=== PATIENT | male | born 1960 | race Two or more races ===

== ENCOUNTER 2020-09-13 15:31 | Outpatient (REF) | payer OTHER, SELFPAY | END 2020-09-13 15:32 | disposition home or self-care (01) | LOC: HO.LAB 15:31 | PROVIDERS: Visit Provider Internal Medicine | DX: Z20.828 Contact with and (suspected) exposure to other viral communicable diseases (principal) | CPT/HCPCS: C9803; U0003 ==

== ENCOUNTER 2021-10-20 07:13 | Outpatient (REF) | payer OTHER, SELFPAY ==
[2021-10-20 07:35] LABS: MANUAL DIFF FLAG NO
[2021-10-20 07:45] LABS: Ammonia 26 umol/L (13-55)
[2021-10-20 07:54] LABS: Alanine Aminotransferase 16 U/L (0-40); Albumin Level 4.1 g/dL (3.5-5.0); Alkaline Phosphatase 78 U/L (39-117); Anion Gap 11 (12-20); Aspartate Amino Transferase 25 U/L (5-37); Bilirubin Total 0.8 mg/dL (0.0-1.0); Blood Urea Nitrogen 18 mg/dL (9-16); C Reactive Protein 0.72 mg/dL (< or = 0.50); Calcium 9.6 mg/dL (8.4-10.2); Carbon Dioxide 27 mmol/L (22-29); Chloride 106 mmol/L (96-108); Cholesterol 204 mg/dL; Estimated Glomerular Filt Rate > 60; Glucose Fasting 99 mg/dL (60-99); HDL Cholesterol 44 mg/dL; LDL Cholesterol Calculated 145 mg/dl; Potassium 4.8 mmol/L (3.3-5.1); Sodium 139 mmol/L (135-145); Total Protein 7.5 g/dL (6.5-8.0); Triglycerides 77 mg/dL
[2021-10-20 08:02] LABS: Basophils Percent Auto 0.4 % (0-2); Eosinophils Absolute Auto 0.2 X10*3/uL (0.0-0.4); Eosinophils Percent Auto 3.2 % (0-4); Hematocrit 42.8 % (42.0-52.0); Hemoglobin 14.2 g/dl (14.0-18.0); Imm Gran Abs Auto 0.01 X10*3/uL (0.00-0.03); Imm Gran Pct Auto 0.2 % (0.0-0.4); Lymphocytes Absolute Auto 1.1 X10*3/uL (1.2-4.9); Lymphocytes Percent Auto 19.1 % (20-40); Mean Corpuscular HGB Conc 33.2 g/dl (31.0-36.0); Mean Corpuscular Volume 87.5 fL (80.0-98.0); Mean Platelet Volume 9.7 fL (9.4-12.4); Monocytes Absolute Auto 0.6 X10*3/uL (0.1-1.2); Monocytes Percent Auto 10.1 % (2-11); Neutrophils Absolute Auto 3.7 x10*3/uL (2.0-8.3); Platelet Count 125 X10*3/uL (160-400); Red Blood Count 4.89 X10*6/uL (4.60-5.80); Red Cell Distribution Width 14.4 % (11.0-16.0); White Blood Count 5.6 X10*3/uL (4.8-10.8)
[2021-10-20 08:15] LABS: Prostate Specific Antigen Scr 1.04 ng/mL (<0.05-4.0); TSH reflex Free T4 1.12 uIU/mL (0.32-4.0); Vitamin D 25-OH Total 24.8 ng/mL (>30)
[2021-10-20 08:44] LABS: Erythrocyte Sedimentation Rate 21 MM/HR (0-15)
[2021-10-22 13:21] LABS: Anti Nuclear Antibody Screen NEGATIVE (NEGATIVE)
[2021-10-23 15:35] LABS: Anti DNA DS Antibody <1 IU/mL
== END 2021-10-20 07:14 | disposition home or self-care (01) ==
LOC: HO.LAB 07:13
PROVIDERS: PCP Internal Medicine; Visit Provider Internal Medicine
DX: Z00.00 Encounter for general adult medical examination without abnormal findings (principal); Z12.5 Encounter for screening for malignant neoplasm of prostate; E78.00 Pure hypercholesterolemia, unspecified; M25.50 Pain in unspecified joint; R76.8 Other specified abnormal immunological findings in serum; E55.9 Vitamin D deficiency, unspecified; K74.60 Unspecified cirrhosis of liver
CPT/HCPCS: 36415; 80053; 80061; 82140; 82306; 84153; 84443; 85025; 85652; 86038; 86039; 86140; 86225; 86431

== ENCOUNTER 2021-11-10 09:03 | Outpatient (REF) | payer OTHER, SELFPAY ==
--- NOTE | ~2021-11-10 | US_ITS ---
EXAMINATION: US ABDOMEN COMPLETE CLINICAL INFORMATION: Unspecified cirrhosis of liver. COMPARISON: CT abdomen and pelvis without contrast 11/06/2017. Abdominal ultrasound complete 07/22/2014. TECHNIQUE: Real-time imaging of the abdominal viscera. FINDINGS: PANCREAS: Normal. ABDOMINAL AORTA: The proximal, mid, and distal segments are normal in caliber. INFERIOR VENA CAVA: Visualized portions are normal. LIVER: Liver echotexture is increased and heterogeneous suggestive of hepatocellular disease. The contour of the liver is irregular suggestive of cirrhosis. There is marked hypertrophy of the caudate lobe. There is a 1.3 x 1.4 x 1.3 cm hyperechoic lesion in the left lobe of the liver worrisome for neoplasm. No other focal liver lesion is seen. GALLBLADDER: The gallbladder is physiologically distended. Multiple mobile gallstones are present. The gallbladder wall appears slightly thickened measuring 4 mm. There is gallbladder wall edema. Changes may be related to liver disease. COMMON BILE DUCT: Normal in caliber measuring 0.4 cm in diameter. RIGHT KIDNEY: Normal. No hydronephrosis. No renal calculi or focal parenchymal lesions. The kidney measures 9.7 cm in maximum dimension. LEFT KIDNEY: Normal. No hydronephrosis. No renal calculi or focal parenchymal lesions. The kidney measures 10.5 cm in maximum dimension. SPLEEN: Normal. The spleen measures 11.7 cm in maximum dimension. FREE FLUID: None. US/US abdomen complete IMPRESSION: Cirrhotic-appearing liver. 1.3 x 1.4 x 1.3 cm hyperechoic lesion in the left lobe of the liver. Possible neoplastic process should be considered and follow-up liver MRI with contrast recommended. Gallstones. Slightly thickened edematous gallbladder wall. This may be related to the patient's liver disease. 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
== END 2021-11-10 09:04 | disposition home or self-care (01) ==
LOC: HO.US 09:03
PROVIDERS: Visit Provider Internal Medicine
DX: K74.60 Unspecified cirrhosis of liver (principal)
CPT/HCPCS: 76700

== ENCOUNTER 2021-11-26 09:31 | Outpatient (REF) | payer OTHER, SELFPAY ==
--- NOTE | ~2021-11-26 | XR_ITS ---
EXAMINATION: PRE-MRI ORBITS AND PELVIS CLINICAL INFORMATION: Pre-MRI screening COMPARISON: None TECHNIQUE: Orbits 3 views. Pelvis one view. FINDINGS: ORBITS: There is no radiopaque foreign body seen in the orbits. Visualized bony orbits and sinus dean are intact. The paranasal sinuses and mastoid air cells are well-aerated and clear. PELVIS: There is no radiopaque metallic foreign body seen in the pelvis or the proximal thighs. XR/XR pre mri screening IMPRESSION: No radiopaque metallic foreign body seen in the orbits. No radiopaque metallic foreign body seen in the pelvis or the proximal thighs.
--- NOTE | ~2021-11-26 | MR_ITS ---
EXAMINATION: MR ABDOMEN WITHOUT AND WITH CONTRAST CLINICAL INFORMATION: Liver disease. COMPARISON: Abdominal ultrasound 11/10/2021 CT abdomen/pelvis 11/06/2017 TECHNIQUE: MR abdomen was performed without and with use of 7 mL intravenous Gadavist gadolinium contrast. Postcontrast images are performed in multiphase dynamic sequences. Imaging was performed in 3 planes. FINDINGS: LUNG BASES: No pleural or pericardial effusion. LIVER, GALLBLADDER, AND BILIARY TREE: Nodular surface contour of the liver. 1.2 cm circumscribed T2 hyperintense T1 hypointense focus in the left hepatic lobe demonstrates progressive peripheral nodular enhancement. 1.3 cm focus of arterial phase enhancement at the hepatic dome on image 25 of series 100. No corresponding signal abnormality on T2 weighted images. No definite evidence of washout characteristics. T2 hyperintense peripheral reticular changes with capsular retraction and portal venous phase enhancement most likely represents fibrosis. No biliary ductal dilatation. The gallbladder contains numerous gallstones. PANCREAS: No ductal dilatation SPLEEN: Borderline enlarged. Measures 13.1 cm in AP dimension. ADRENAL GLANDS: No adrenal masses. KIDNEYS AND URETERS: Symmetric in size and enhancement. No hydronephrosis or perinephric stranding. GASTROINTESTINAL TRACT: Imaged loops of small and large bowel are not obstructed. ABDOMINAL WALL: No significant hernia is appreciated. LYMPH NODES: No abdominal lymphadenopathy. VASCULAR: Normal caliber abdominal aorta. MR/MR abdomen wo/w con IMPRESSION: Morphology consistent with cirrhosis. Mild splenic enlargement. 1.3 cm observation at the hepatic dome demonstrating arterial phase enhancement. This is classified as a LR-3 lesion with an intermediate probability for HCC. Short interval follow-up in 3 months is advised. 1.2 cm lesion in the left hepatic lobe with progressive peripheral nodular enhancement. This may represent a hemangioma. Cholelithiasis.
== END 2021-11-26 09:32 | disposition home or self-care (01) ==
LOC: HO.MRI 09:31
PROVIDERS: Visit Provider Internal Medicine
DX: K70.31 Alcoholic cirrhosis of liver with ascites (principal); K76.9 Liver disease, unspecified; T15.80XA Foreign body in other and multiple parts of external eye, unspecified eye, initial encounter; X58.XXXA Exposure to other specified factors, initial encounter; Y93.9 Activity, unspecified; Y92.9 Unspecified place or not applicable; Y99.9 Unspecified external cause status
CPT/HCPCS: 74183; A9585

== ENCOUNTER 2024-01-04 08:01 | Outpatient (REF) | payer OTHER, SELFPAY ==
[2024-01-04 08:23] LABS: MANUAL DIFF FLAG NO
[2024-01-04 08:33] LABS: Ammonia 25 umol/L (13-55)
[2024-01-04 08:58] LABS: Appearance Urine Clear; Color Urine Yellow; Glucose Urine UA Negative (Negative); Leukocyte Esterase Urine Trace (Negative); Nitrite Urine Negative (Negative); PH 5.5 (5.0-9.0); Specific Gravity - Urine 1.015 (1.005-1.025); UMIC TRIGGER UACC YES; Urine Blood Negative (Negative); Urine Ketones Negative (Negative); Urine Protein Negative (Neg-Trace)
[2024-01-04 09:04] LABS: Bacteria Urine Trace (None Seen); Hyaline Casts Urine 0-2 /LPF (0-2); RBC Urine 0-2 /HPF (0-2); UACC Culture Trigger YES
[2024-01-04 09:09] LABS: Basophils Percent Auto 0.4 % (0-2); Eosinophils Absolute Auto 0.3 X10*3/uL (0.0-0.4); Eosinophils Percent Auto 5.9 % (0-4); Hematocrit 43.6 % (42.0-52.0); Hemoglobin 14.4 g/dl (14.0-18.0); Imm Gran Abs Auto 0.02 X10*3/uL (0.00-0.03); Imm Gran Pct Auto 0.4 % (0.0-0.4); Lymphocytes Percent Auto 19.6 % (20-40); Mean Corpuscular Hemoglobin 28.1 pg (27.0-33.0); Mean Platelet Volume 9.7 fL (9.4-12.4); Monocytes Absolute Auto 0.5 X10*3/uL (0.1-1.2); Monocytes Percent Auto 10.9 % (2-11); Neutrophils Absolute Auto 3.1 x10*3/uL (2.0-8.3); Neutrophils Percent Auto 62.8 % (45-73); Platelet Count 132 X10*3/uL (160-400); Red Blood Count 5.13 X10*6/uL (4.60-5.80); Red Cell Distribution Width 14.3 % (11.0-16.0)
[2024-01-04 09:52] LABS: Alanine Aminotransferase 13 U/L (0-40); Albumin Level 3.9 g/dL (3.5-5.0); Alkaline Phosphatase 67 U/L (39-117); Anion Gap 11 (12-20); Aspartate Amino Transferase 19 U/L (5-37); Bilirubin Total 1.2 mg/dL (0.0-1.0); Blood Urea Nitrogen 18 mg/dL (9-16); Calcium 9.2 mg/dL (8.4-10.2); Carbon Dioxide 25 mmol/L (22-29); Chloride 107 mmol/L (96-108); Cholesterol 174 mg/dL (<200); Estimated Glomerular Filt Rate > 60; Glucose Fasting 97 mg/dL (60-99); HDL Cholesterol 47 mg/dL (>40); LDL Cholesterol Calculated 116 mg/dL (<100); Potassium 4.1 mmol/L (3.3-5.1); Sodium 139 mmol/L (135-145); Total Protein 7.4 g/dL (6.5-8.0); Triglycerides 56 mg/dL (<150)
[2024-01-04 09:56] LABS: TSH reflex Free T4 1.05 uIU/mL (0.32-4.0); Vitamin D 25-OH Total 21.3 ng/mL (>30)
[2024-01-04 12:08] LABS: Folate 12.3 ng/mL (> or = 4.0); Vitamin B12 417 pg/mL (200-900)
== END 2024-01-04 08:02 | disposition home or self-care (01) ==
LOC: HO.LAB 08:01
PROVIDERS: PCP Internal Medicine; Visit Provider Internal Medicine
DX: D64.9 Anemia, unspecified (principal); E78.00 Pure hypercholesterolemia, unspecified; E53.8 Deficiency of other specified B group vitamins; E55.9 Vitamin D deficiency, unspecified; R30.0 Dysuria
CPT/HCPCS: 36415; 80053; 80061; 81001; 82140; 82306; 82607; 82746; 84443; 85025; 87086

== ENCOUNTER 2024-01-14 12:50 | Outpatient (AMB) | payer OTHER, SELFPAY ==
--- NOTE | 2024-01-14 12:52 | MHC.PC.OV ---
Vital Signs 01/14/24 12:53 Height 5 ft 5 in Weight 129 lb BMI 21.5 BP 128/76 Blood Pressure Location Lt brachial Position Sitting Pulse 59 Pulse Source Pulse Oximeter Pulse Oximetry (%) 99 Oxygen Delivery Method Room Air Intake Visit Reasons: Overdue Annual PE/Last seen 2021 Folder Inspector Required: No Allergies atorvastatin [From LIPITOR] Allergy (Unknown, Verified 01/14/24 13:59) UNKNOWN ANY STATIN MEDICATIONS Allergy (Unknown, Uncoded 01/14/24 13:59) hives Lipitor Allergy (Unknown, Uncoded 01/14/24 13:59) Hives Medication List - Last Reconciled 01/14/24 by Colt Cadena MD cholecalciferol (vitamin D3) 50 mcg PO DAILY 90 days Tobacco use date assessed: 01/14/24 Fall risk assessment: No Falls in past year Last assessed Fall Risk: 01/14/24 Dental Screening Dental Screen Date: 01/14/24 Did you have a dental visit in the last 12 months?: No Did you have a dental problem in the last 6 months where you did not have access to dental care?: No HPI Overdue Annual PE/Last seen 2021 HPI Details Patient comes in today for his annual physical examination - was last seen here in February 2022 States that he currently feels okay He denies any headaches or dizziness Denies any chest pains, no SOB No nausea/vomiting, no abdominal pain No change in bowel habits noted He denies any acute urinary symptoms Is currently only taking some OTC vitamins and supplements and is on no prescription Rx at this time Had his follow up labs done last week - to discuss his results He last had his screening colonoscopy done by Dr. Carter in 2019 and was advised at the time that he will need a repeat colonoscopy in 3 years (2021) - has not had one done since [facility] Medical History Vitamin D deficiency Smoker Portal hypertension Pure hypercholesterolemia Liver cirrhosis Surgical History History of colonoscopy History of penile implant Social History Housing: House Alcohol intake: former Patient Tobacco Use Status: Current everyday Tobacco user Cigarette Packs Per Day: 1 Second Hand Smoke Exposure: Yes service: No Current occupational status: employed Cognitive needs: No Hearing needs: No Vision needs: Yes Questionnaire PHQ-9 Over the last 2 weeks, how often have you been bothered by any of the following problems? 1. Little interest or pleasure in doing things: not at all 2. Feeling down, depressed, or hopeless: not at all 3. Trouble falling or staying asleep, or sleeping too much: not at all 4. Feeling tired or having little energy: not at all 5. Poor appetite or overeating: not at all 6. Feeling bad about yourself - or that you are a failure or have let yourself or your family down: not at all 7. Trouble concentrating on things, such as reading the newspaper or watching television: not at all 8. Moving or speaking so slowly that other people could have noticed. Or the opposite - being so fidgety or restless that you have been moving around a lot more than usual: not at all 9. Thoughts that you would be better off or of hurting yourself in some way: not at all Total score: 0 Depression Screening Interpretation: Negative Depression Screening Done: Yes 80675 - PHQ-9 Billing: Yes Source: Developed by Drs. Chang Cano, Mily Juares, Thien Montgomery and colleagues, with an educational pam from [employer]. Thrive Questionnaire Date Thrive assessed: 01/14/24 I am a: Patient What is your living situation today?: I have a steady place to live Within the past 12 months, did the food you bought not last and you didn't have the money to get more?: Never true Within the past 12 months, did you worry whether your food would run out before you got money to buy more?: Never true Do you have trouble paying for medicines?: No Do you have trouble getting transportation to medical appointments?: No Do you have trouble paying your heating and electricity bill?: No Do you have trouble taking care of your child, family member or friend?: No Do you have trouble with day-to-day activities such as bathing, preparing meals, shopping, managing finances, etc.?: No Are you currently unemployed and looking for a job?: No Are you interested in more education?: No Please select the resources that you would like help with: None Currently or been in a relationship where the following occur: no concerns reported THRIVE Score: 0 AUDIT C Alcohol Use Questionnaire (AUDIT-C) 1. How often do you have a drink containing alcohol?: Never 2. How many drinks containing alcohol do you have on a typical day when you are drinking?: 1 or 2 (0) 3. How often do you have six or more drinks on one occasion?: Never Total Score: 0 Score Reviewed/Action Taken: Yes SUSANNA-7 AMB Questionnaire SUSANNA-7 Date SUSNANA - 7 assessed: 01/14/24 Feeling nervous, anxious, or on edge: 0 = Not at all Not being able to stop or control worryin = Not at all Worrying too much about different things: 0 = Not at all Trouble relaxin = Not at all Being so restless that it is hard to sit still: 0 = Not at all Becoming easily annoyed or irritable: 0 = Not at all Feeling afraid as if something awful might happen: 0 = Not at all Total SUSANNA-7 score (0-4 normal; 5-9 mild; 10-14 moderate; 15-21 severe): 0 Source: Developed by Drs. Chang Cano, Mily Juares, Thien Montgomery and colleagues, with an educational pam from [employer]. SUSANNA-7 Assessment Billing SUSANNA-7 Assessment Tool: SUSANNA-7 Assessment 25398 Review of Systems Const Denies chills, Denies fatigue, Denies fever(s), Denies headache(s), Denies malaise and Denies weakness Eyes Denies blurry vision, Denies change in vision, Denies irritation and Denies itchy eyes ENT Denies dysphagia, Denies dizziness, Denies otalgia, Denies headache(s), Denies nasal congestion, Denies neck pain, Denies odynophagia and Denies sore throat Card Denies chest pain, Denies rapid heart rate, Denies irregular heart rhythm, Denies palpitations and Denies dyspnea Resp Denies chest congestion, Denies cough, Denies dyspnea and Denies wheezing GI Denies abdominal pain, Denies bloating, Denies constipation, Denies dysphagia, Denies heartburn, Denies diarrhea, Denies nausea, Denies odynophagia and Denies vomiting Denies hematuria, Denies difficulty urinating, Denies dysuria, Denies urinary frequency and Denies urinary urgency Musc Denies back pain, Reports arthralgias (involving multiple joints, especially over the hands/fingers), Denies joint swelling, Denies muscle weakness, Denies neck pain and Reports stiffness Skin/Breast Denies change in pigmentation, Denies lesions, Denies rash and Denies unusual bruising Neuro Denies dizziness, Denies headache(s), Denies paresthesias and Denies weakness Endo Denies fatigue and Denies palpitations Aller/Immun Denies itchy eyes and Denies wheezing Physical exam (Primary Care) Vital Signs: Last Vital Signs Pulse 59 01/14/24 12:53 BP 128/76 01/14/24 12:53 Pulse Ox 99 01/14/24 12:53 Oxygen Delivery Method Room Air 01/14/24 12:53 BMI result Body Mass Index 21.5 Tobacco/Smoking Status: Tobacco use Status Tobacco use date assessed 01/14/24 01/14/24 12:53 Patient Tobacco Use Status Current everyday Tobacco 01/14/24 12:53 PHQ-9: PHQ-9 Score PHQ-9: Total score 0 01/14/24 12:58 Depression Screening Interpretation: Negative Thrive Assessment: Date of Thrive Assessment Date Thrive assessed 01/14/24 01/14/24 12:53 Currently or been in a relationship where the following occur: no concerns reported Const General: no acute distress, alert and awake Orientation/consciousness: patient oriented x3 HENMT Head: Yes normocephalic and Yes atraumatic Ears: external ears normal, TM's normal bilaterally and EAC's normal General nose exam: No nasal discharge present Face and sinus: Yes normal facial exam and Yes sinuses nontender Teeth and gingiva: dentition normal Throat: Yes posterior oropharynx normal and Yes tonsils normal (no TP congestion) Eyes Eyelids: Yes eyelids normal Conjunctivae: conjunctivae normal Pupils: Equal, round and reactive pupils present EOM: EOMs intact bilaterally Neck Neck: Yes no lymphadenopathy and Yes supple Thyroid: Thyroid normal Resp Auscultation: clear to auscultation bilaterally, no rales and no wheezes Cardio Rate: regular rate Rhythm: regular rhythm Heart sounds: no murmurs GI Palpation (GI): Soft to palpation, nontender and No hepatosplenomegaly present Auscultation: normal bowel sounds General: Yes no CVA tenderness Back/Spine/Pelvis Back: no CVA tenderness Thoracic/Lumbar Spine: thoracic and lumbar spine normal to inspection Skin Lesions: no lesions Rashes: no rashes Neuro General: patient oriented x3, moves all extremities, no focal motor deficits and CN's II-XI intact bilaterally Cranial nerves: Yes Equal, round and reactive pupils present Cognition (Neuro): normal cognition Gait exam (Neuro): Normal gait present Extrem General: Yes no clubbing, cyanosis or edema Results Reviewed Results Reviewed: Laboratory Tests 01/04/24 01/04/24 08:16 08:22 WBC 5.0 Hgb 14.4 Hct 43.6 Plt Count 132 L Sodium 139 Potassium 4.1 Creatinine 1.03 Estimated GFR > 60 Fasting Glucose 97 Calcium 9.2 AST 19 ALT 13 Triglycerides 56 Cholesterol 174 LDL Cholesterol, Calc 116 H HDL Cholesterol 47 Vitamin B12 417 25-OH Vitamin D Total 21.3 L TSH 1.05 Ur Specific [place] 1.015 Urine Protein Negative Urine Glucose (UA) Negative Urine Blood Negative Urine Nitrite Negative Ur Leukocyte Esterase Trace H Assessment and Plan Assessment & Plan (1) Annual physical exam: Code(s): Z00.00 - Encounter for general adult medical examination without abnormal findings Plan: Results of his labs done last week reviewed and discussed with patient He last had his screening colonoscopy done in January [address] Carter; was recommended repeat colonoscopy in 3 years (2021) but he has not yet been able to do so States that he would like to have his colon[place] done here [place] [facility] [place] - will refer him to [facility] for his next screening colonoscopy Will recheck his serum PSA level as well when he goes for his repeat labs in a few months (2) Liver cirrhosis: Code(s): K74.60 - Unspecified cirrhosis of liver Qualifiers: Hepatic cirrhosis type: alcoholic cirrhosis Ascites presence: with ascites Qualified Code(s): K70.31 - Alcoholic cirrhosis of liver with ascites Plan: Repeat abdominal US done in 2021 revealed a hypoechoic lesion in the liver and MRI was recommended for further evaluation MRI done in November 2021 revealed that the hepatic morphology was consistent with cirrhosis. There is mild splenic enlargement noted. A 1.3 cm lesion is observed at the hepatic dome demonstrating arterial phase enhancement. This is classified as a LR-3 lesion with an intermediate probability for HCC. Short interval follow-up in 3 months is advised. There is a 1.2 cm lesion in the left hepatic lobe with progressive peripheral nodular enhancement. This may represent a hemangioma. Cholelithiasis is also noted He was previously referred to GI for further evaluation and management but it does not look like he was ever seen for this - will refer him again to GI (3) Portal hypertension: Code(s): K76.6 - Portal hypertension Plan: Was on Propranolol 10 mg BID in the past but has not taken this in a while now His LFTs done last week came out okay (4) History of upper gastrointestinal bleeding: Code(s): Z87.19 - Personal history of other diseases of the digestive system Plan: Stable with no recurrence of symptoms Was on Omeprazole 40 mg BID in the past but patient has again not taken any Rx in a while Follow-up with GI as scheduled (5) Pure hypercholesterolemia: Code(s): E78.00 - Pure hypercholesterolemia, unspecified Plan: He is advised that his cholesterol numbers have improved from a couple of years ago on his recent labs Reinforced low cholesterol diet Will recheck his fasting lipids and labs in 4 months for follow-up (6) History of alcohol abuse: Code(s): F10.11 - Alcohol abuse, in remission Plan: Reinforced abstinence Patient states that he has not had any alcohol for the past few years now Was on Folic Acid 1 mg and Thiamine 100 mg daily in the past but patient has again not been taking any of his previous Rx in the past couple of years (7) Vitamin D deficiency: Code(s): E55.9 - Vitamin D deficiency, unspecified Plan: He is advised that his Vitamin D level is still low on his recent labs Will start him on Vitamin D3 2000 units QD (8) Arthralgia: Code(s): M25.50 - Pain in unspecified joint Qualifiers: Joint pain location: unspecified Qualified Code(s): M25.50 - Pain in unspecified joint Plan: Arthralgia work ups last done a couple of years ago came back positive for OLIVIA and slightly elevated ESR; CRP and RA were negative Rheumatoid factor this time was high on his labs done in September 2021; OLIVIA was negative He currently does NOT have any signs or symptoms of active inflammatory disease (9) Smoker: Code(s): F17.200 - Nicotine dependence, unspecified, uncomplicated Plan: Counseled again on smoking cessation (10) Colon cancer screening: Code(s): Z12.11 - Encounter for screening for malignant neoplasm of colon Plan: Will refer him for repeat colonoscopy - used to see Dr. Carter but he requested to have this done at [facility] [place] Plan Follow up in 4 months Orders: Orders Lipid Panel 4 Months E78.00 - Pure hypercholesterolemia, unspecified, Z00.00 - Encounter for general adult medical examination without abnormal findings Complete Blood Count Auto Diff 4 Months D64.9 - Anemia, unspecified, Z00.00 - Encounter for general adult medical examination without abnormal findings Comprehensive [place]. Panel Fast 4 Months E78.00 - Pure hypercholesterolemia, unspecified, Z00.00 - Encounter for general adult medical examination without abnormal findings Prostate Specific Antigen 4 Months N40.0 - Benign prostatic hyperplasia without lower urinary tract symptoms, Z00.00 - Encounter for general adult medical examination without abnormal findings Referrals Gastroenterology Referral K76.9 - Liver disease, unspecified, Z12.11 - Encounter for screening for malignant neoplasm of colon Medications: New cholecalciferol (vitamin D3) 50 mcg PO DAILY 90 days 90 caps 3RF E55.9 - Vitamin D deficiency, unspecified Coding Level of Care Code Est Pt Prev Care 40-64y(90862) Diagnoses Annual physical exam Z00.00 Alcoholic cirrhosis of liver with ascites K70.31 Hepatic cirrhosis type: alcoholic cirrhosis Ascites presence: with ascites Portal hypertension K76.6 History of upper gastrointestinal bleeding Z87.19 Pure hypercholesterolemia E78.00 History of alcohol abuse F10.11 Vitamin D deficiency E55.9 Arthralgia, unspecified joint M25.50 Joint pain location: unspecified Smoker F17.200 Colon cancer screening Z12.11 Additional Codes SUSANNA-7 Assessment Billing - SUSANNA-7 Assessment Tool: SUSANNA-7 Assessment [id number] ([id number])
[2024-01-14 12:53] VITALS: BP 128/76; PULSE 59; O2SAT 99; BMI 21.5
== END 2024-01-14 13:43 | disposition home or self-care (01) ==
PROVIDERS: PCP Internal Medicine; Visit Provider Internal Medicine
DX: Z00.00 Encounter for general adult medical examination without abnormal findings (principal); K70.31 Alcoholic cirrhosis of liver with ascites; K76.6 Portal hypertension; Z87.19 Personal history of other diseases of the digestive system; E78.00 Pure hypercholesterolemia, unspecified; F10.11 Alcohol abuse, in remission; E55.9 Vitamin D deficiency, unspecified; M25.50 Pain in unspecified joint; F17.200 Nicotine dependence, unspecified, uncomplicated; Z12.11 Encounter for screening for malignant neoplasm of colon
CPT/HCPCS: 99396

== ENCOUNTER 2024-04-18 11:51 | Outpatient (AMB) | payer OTHER, SELFPAY ==
--- NOTE | 2024-04-18 11:55 | MHC.OFFVIS ---
Vital Signs 04/18/24 12:02 Height 5 ft 5 in Weight 135 lb 5.821 oz BMI 22.5 BP 128/72 Blood Pressure Location Lt brachial Position Sitting Pulse 52 Pulse Source Pulse Oximeter Pulse Oximetry (%) 100 Oxygen Delivery Method Room Air Intake Visit Reasons: Colonoscopy Screening, Liver DiseASE Intake Note: Rg presents in office today for a scheduled colo s/p scrn CC; This consult was scheduled with routine/recall priority (last in [address] Carter) Pt also has a hx of alcoholic cirrhosis with associated ascites. Pt spouse is concerned about when the next CT scan will be. Pt spouse would also like to discuss liver enzymes and lab tests. Pt denies any noticeable sx or concerns at this time. Pt states that this is only for recall purposes. Pt has hx of polypectomy. [employer] Inspector Required: No Accompanied by: Spouse Allergies atorvastatin [From LIPITOR] Allergy (Unknown, Verified 04/18/24 12:01) UNKNOWN ANY STATIN MEDICATIONS Allergy (Unknown, Uncoded 01/14/24 13:59) hives Lipitor Allergy (Unknown, Uncoded 01/14/24 13:59) Hives HPI HPI Colonoscopy Screening, Liver DiseASE: Details: 63-year-old male with past medical history of vitamin-D deficiency, liver cirrhosis, lesion of left lobe of the liver, history of alcohol abuse, portal hypertension, hypercholesteremia, is here today for initial consultation. Patient reports that he is due to go for colonoscopy. Last colonoscopy with Dr. Martinez in 2019 recommendation was made to repeat colonoscopy in 5 years. Patient has a history of liver cirrhosis due to heavy alcohol intake. Patient and patient's report that he is no longer drinking alcohol. Sober for few months. Last liver enzymes done in December and they were normal. No ultrasound for couple years we will order liver ultrasound with elastography. Patient reports that he has been doing well. Denies any issues with anesthesia in the past. No history of sleep apnea. Patient is not on any anticoagulation medication. Denies any cardiac or respiratory symptoms. Patient reports that he is fairly active working full-time. Patient denies any family history CRC. Patient reports that he is moving his bowels, however occasionally he does have constipation. He believes he might have hemorrhoids as well. Denies melena, hematochezia, unintentional weight loss or ribbon like stools. Patient denies any abdominal pain or discomfort. Patient denies any acid reflux, dyspepsia, dysphagia or odynophagia. [facility] Medical History Vitamin D deficiency Smoker Portal hypertension Pure hypercholesterolemia Liver cirrhosis Surgical History History of colonoscopy History of penile implant Social History Housing: House Alcohol intake: former Patient Tobacco Use Status: Current everyday Tobacco user Cigarette Packs Per Day: 1 Second Hand Smoke Exposure: Yes service: No Current occupational status: employed Cognitive needs: No Hearing needs: No Vision needs: Yes Review of Systems Const Denies weight gain and Denies weight loss ENT Reports no additional complaints, Denies dysphagia and Denies odynophagia Card Reports no additional complaints Resp Reports no additional complaints GI Denies abdominal pain, Denies belching, Denies melena, Denies bloating, Denies change in bowel habits, Denies dysphagia, Denies excessive flatus, Denies dyspepsia, Denies heartburn, Denies diarrhea, Denies loose stools, Denies nausea, Denies odynophagia and Denies vomiting Reports no additional complaints Musc Reports no additional complaints Neuro Reports no additional complaints Psych Reports no additional complaints Endo Reports no additional complaints Physical Exam Vital Signs: Last Vital Signs Pulse 52 04/18/24 12:02 BP 128/72 04/18/24 12:02 Pulse Ox 100 04/18/24 12:02 Oxygen Delivery Method Room Air 04/18/24 12:02 BMI result Body Mass Index 22.5 Const General: healthy appearing, no acute distress and well developed Nutritional Appearance: well nourished Orientation/consciousness: patient oriented x3 Resp Effort & Inspection: normal respiratory effort, able to speak in complete sentences, no tracheal deviation and symmetric chest movement Auscultation: clear to auscultation bilaterally Cardio Rate: regular rate GI Inspection: Yes normal to inspection and No distended Palpation (GI): Soft to palpation, not firm, nontender and No hepatosplenomegaly present Auscultation: normal bowel sounds General: Yes no CVA tenderness Back/Spine/Pelvis Back: no CVA tenderness Skin General skin exam: elasticity normal, turgor normal and dry skin Neuro General: patient oriented x3 Psych Appearance: grossly normal Mental Status: mental status grossly normal Assessment & Plan Assessment & Plan (1) Liver cirrhosis: Code(s): K74.60 - Unspecified cirrhosis of liver Category: Medical Qualifiers: Ascites presence: with ascites Hepatic cirrhosis type: alcoholic cirrhosis Qualified Code(s): K70.31 - Alcoholic cirrhosis of liver with ascites (2) Colon cancer screening: Code(s): Z12.11 - Encounter for screening for malignant neoplasm of colon Category: Medical (3) Lesion of left lobe of liver: Code(s): K76.9 - Liver disease, unspecified Category: Medical (4) History of alcohol abuse: Code(s): F10.11 - Alcohol abuse, in remission Category: Medical (5) History of upper gastrointestinal bleeding: Code(s): Z87.19 - Personal history of other diseases of the digestive system Category: Medical (6) Hemorrhoid: Code(s): K64.9 - Unspecified hemorrhoids Qualifiers: Hemorrhoid type: unspecified Qualified Code(s): K64.9 - Unspecified hemorrhoids Plan Will check for hepatitis A, B, C, phosphatidylethanol to verify patient's abstinence from alcohol. Will order ultrasound with liver elastography. Patient will be sent for upper endoscopy as he have a history of liver cirrhosis. Patient denies any cardiac or respiratory symptoms. He is not on any anticoagulation medication. Colace daily to help with bowel movement. May use Proctosol on as needed basis. Sitz baths with Epsom salt as needed. I will see patient after the procedure, sooner on as needed basis. He is agreeable to this plan and verbalizes understanding of instructions. He was given the opportunity to ask questions and all questions answered. Thank you for allowing me to participate in his care Orders: Orders Hepatitis A,B,C Profile 04/18/24 R79.89 - Other specified abnormal findings of blood chemistry Phosphatidylethanol, Blood 04/18/24 R74.01 - Elevation of levels of liver transaminase levels US abdomen chau w elastography 04/18/24 K70.31 - Alcoholic cirrhosis of liver with ascites Medications: New bisacodyl (Dulcolax (bisacodyl)) take 4 tabs at noon the day before your colonoscopy 20 mg (4 x 5 mg) PO ONCE 4 tabs 0RF 1 day Z12.11 - Encounter for screening for malignant neoplasm of colon polyethylene glycol 3350 (Miralax) As directed by gastroenterology department at [facility] 238 grams PO ONCE 238 grams 0RF Z12.11 - Encounter for screening for malignant neoplasm of colon docusate sodium 100 mg PO BEDTIME 90 caps 3RF K59.00 - Constipation, unspecified hydrocortisone 2.5% (Proctosol HC) 1 appl GA BID-QID PRN 30 grams 2RF hemorrhoids K64.9 - Unspecified hemorrhoids Coding Level of Care Code New Pt Level 4 (71825) Diagnoses Alcoholic cirrhosis of liver with ascites K70.31 Ascites presence: with ascites Hepatic cirrhosis type: alcoholic cirrhosis Colon cancer screening Z12.11 Lesion of left lobe of liver K76.9 History of alcohol abuse F10.11 History of upper gastrointestinal bleeding Z87.19 Hemorrhoids, unspecified hemorrhoid type K64.9 Hemorrhoid type: unspecified Time Spent (min) 45 Comment 30 minutes spent with patient and additional 15 minutes spent reviewing his records
[2024-04-18 12:02] VITALS: BP 128/72; PULSE 52; O2SAT 100; BMI 22.5
== END 2024-04-18 13:20 | disposition home or self-care (01) ==
PROVIDERS: PCP Internal Medicine; Visit Provider Nurse Practitioner Family
DX: K70.31 Alcoholic cirrhosis of liver with ascites (principal); Z12.11 Encounter for screening for malignant neoplasm of colon; K76.9 Liver disease, unspecified; F10.11 Alcohol abuse, in remission; Z87.19 Personal history of other diseases of the digestive system; K64.9 Unspecified hemorrhoids
CPT/HCPCS: 99204

== ENCOUNTER → 2024-04-18 11:51 | Outpatient (BNVA) | payer OTHER, SELFPAY | PROVIDERS: PCP Internal Medicine; Visit Provider Nurse Practitioner Family ==

== ENCOUNTER 2024-04-28 12:16 | Outpatient (REF) | payer OTHER, SELFPAY ==
[2024-04-28 13:00] LABS: MANUAL DIFF FLAG NO
[2024-04-28 14:13] LABS: Appearance Urine Clear; Color Urine Yellow; Glucose Urine UA Negative (Negative); Leukocyte Esterase Urine Negative (Negative); Nitrite Urine Negative (Negative); Urine Blood Negative (Negative); Urine Ketones Negative (Negative); Urine Protein Negative (Neg-Trace)
[2024-04-28 14:13] LABS: Basophils Percent Auto 0.4 % (0-2); Eosinophils Absolute Auto 0.3 X10*3/uL (0.0-0.4); Eosinophils Percent Auto 5.1 % (0-4); Hematocrit 43.9 % (42.0-52.0); Hemoglobin 14.3 g/dl (14.0-18.0); Imm Gran Abs Auto 0.04 X10*3/uL (0.00-0.03); Imm Gran Pct Auto 0.7 % (0.0-0.4); Lymphocytes Absolute Auto 0.8 X10*3/uL (1.2-4.9); Lymphocytes Percent Auto 13.9 % (20-40); Mean Corpuscular HGB Conc 32.6 g/dl (31.0-36.0); Mean Corpuscular Hemoglobin 28.4 pg (27.0-33.0); Mean Corpuscular Volume 87.1 fL (80.0-98.0); Mean Platelet Volume 9.6 fL (9.4-12.4); Monocytes Absolute Auto 0.6 X10*3/uL (0.1-1.2); Monocytes Percent Auto 10.8 % (2-11); Neutrophils Absolute Auto 3.8 x10*3/uL (2.0-8.3); Neutrophils Percent Auto 69.1 % (45-73); Platelet Count 143 X10*3/uL (160-400); Red Blood Count 5.04 X10*6/uL (4.60-5.80); Red Cell Distribution Width 14.5 % (11.0-16.0); White Blood Count 5.5 X10*3/uL (4.8-10.8)
[2024-04-28 14:38] LABS: Alanine Aminotransferase 27 U/L (0-40); Albumin Level 4.2 g/dL (3.5-5.0); Alkaline Phosphatase 89 U/L (39-117); Anion Gap 13 (12-20); Aspartate Amino Transferase 26 U/L (5-37); Bilirubin Total 0.7 mg/dL (0.0-1.0); Blood Urea Nitrogen 22 mg/dL (9-16); Calcium 9.8 mg/dL (8.4-10.2); Carbon Dioxide 27 mmol/L (22-29); Chloride 106 mmol/L (96-108); Cholesterol 191 mg/dL (<200); Estimated Glomerular Filt Rate > 60; Glucose Fasting 102 mg/dL (60-99); HDL Cholesterol 50 mg/dL (>40); LDL Cholesterol Calculated 126 mg/dL (<100); Potassium 4.6 mmol/L (3.3-5.1); Sodium 141 mmol/L (135-145); Triglycerides 79 mg/dL (<150)
[2024-04-28 14:54] LABS: Prostate Specific Antigen 4.81 ng/mL (<0.05-4.0)
[2024-05-01 08:19] LABS: HBS Num1 1.78 mIU/mL (0-7.99); HBsAGNum1 0.22 S/CO (0.00-0.99); Hepatitis A Antibody IgM 0.46 Index (0-0.79); Hepatitis B Core Antibody Nonreactive (Nonreactive); Hepatitis B Surface Antigen Negative (Negative); ~HepC Num1 0.49 S/CO (0.00-0.79); ~Hepatitis A Antibody IgM Nonreactive (Nonreactive); ~Hepatitis B Surface Antibody NONREACTIVE (Nonreactive); ~Hepatitis C Antibody Nonreactive (Nonreactive)
[2024-05-08 13:04] LABS: Phosphatidylethanol 16:0-18:1 NEGATIVE; Phosphatidylethanol 16:0-18:2 NEGATIVE
== END 2024-04-28 12:17 | disposition home or self-care (01) ==
LOC: HO.LAB 12:16
PROVIDERS: PCP Internal Medicine; Visit Provider Nurse Practitioner Family
DX: Z00.00 Encounter for general adult medical examination without abnormal findings (principal); D64.9 Anemia, unspecified; Z12.5 Encounter for screening for malignant neoplasm of prostate; E78.00 Pure hypercholesterolemia, unspecified; R79.89 Other specified abnormal findings of blood chemistry; R74.01 Elevation of levels of liver transaminase levels; N40.0 Benign prostatic hyperplasia without lower urinary tract symptoms; R30.0 Dysuria
CPT/HCPCS: 36415; 80053; 80061; 80321; 81003; 84153; 85025; 86704; 86706; 86709; 86803; 87340

== ENCOUNTER 2024-05-01 11:51 | Day surgery (SDC) | payer OTHER, SELFPAY ==
[2024-05-01 12:53] VITALS: BMI 21.2
[2024-05-01 13:11] VITALS: BP 129/75; PULSE 52; RESP 18; TEMP 36.8; O2SAT 100
--- NOTE | 2024-05-01 13:21 | MHC.SHP ---
Pre-Procedural Eval Section A - 24 Hr Update-Section A only Date of Service: 05/01/24 The patient is an INPATIENT: No Changes since office visit: Yes Patient answered all questions; No Cold of Flu in the past 2 weeks, No New Medical Problems and No Changes in Medication The patient has been examined within 24 hours of the surgical procedure. The History & Physical has been completed within 30 days and I have reviewed it.: Yes Section B - Complete if H&P > 30 days Chief Complaint: screening, cirrhosis - screen for varices Allergies: Allergies Allergy/AdvReac Type Severity Reaction Status Date / Time atorvastatin [From LIPITOR] Allergy Unknown UNKNOWN Verified 04/18/24 12:01 ANY STATIN MEDICATIONS Allergy Unknown hives Uncoded 01/14/24 13:59 Lipitor Allergy Unknown Hives Uncoded 01/14/24 13:59 Exam Surgical H&P Exam: Normal: Heart, Normal: Lungs, Normal: Extremities and Normal: Abdomen Plan Diagnosis/Plan: Unchanged I have reviewed the history and physical and performed a pertinent physical examination on my patient. No changes have occurred unless specified. Time Spent With Patient Time: Total time managing care of this patient today ____ minutes.
[2024-05-01] MEDS: Lactated Ringers 1,000 ML 100 ML IVCONT (13:41)
--- NOTE | 2024-05-01 14:27 | HO.ANESPROP2 ---
HPI - Anesthesia Eval Consult details Narrative: 63yo male patient for EGD, Colonoscopy PMFSH Active Problems Active Problems: All Active Problems (Updated 01/14/24 @ 13:56 by Colt Cadena MD) Vitamin D deficiency (Acute) Colon cancer screening (Acute) Lesion of left lobe of liver (Acute) Positive OLIVIA (antinuclear antibody) (Acute) Arthralgia (Acute) History of alcohol abuse (Acute) History of upper gastrointestinal bleeding (Acute) Smoker (Acute)- last cigarette this morning Portal hypertension (Acute) Pure hypercholesterolemia (Acute) Liver cirrhosis (Acute) Annual physical exam (Acute) H/o cocaine abuse- patient states not recently Past Medical History Medical History Vitamin D deficiency Smoker Portal hypertension Pure hypercholesterolemia Liver cirrhosis Family History Family history of problems with anesthesia: No Surgical History Surgical History History of colonoscopy History of penile implant History of Problems with Anesthesia: No Social History Social History Housing: House Alcohol intake: former Patient Tobacco Use Status: Current everyday Tobacco user Cigarette Packs Per Day: 1 Cigarettes Per Day: 20 Second Hand Smoke Exposure: Yes service: No Current occupational status: employed Cognitive needs: No Hearing needs: No Vision needs: Yes Meds Allergies Allergy/AdvReac Type Severity Reaction Status Date / Time atorvastatin [From LIPITOR] Allergy Unknown UNKNOWN Verified 04/18/24 12:01 ANY STATIN MEDICATIONS Allergy Unknown hives Uncoded 01/14/24 13:59 Lipitor Allergy Unknown Hives Uncoded 01/14/24 13:59 Active Medications: Current Medications Lactated Ringer's (Lr) 1,000 mls @ 100 mls/hr IVCONT .Q10H JAYA Last Admin: 05/01/24 13:41 Dose: 100 mls/hr Exam Height,Weight and Vital Signs: Height 5 ft 5.5 in Weight 58.627 kg Last Vital Signs Temp 98.2 F 05/01/24 13:11 Pulse 52 05/01/24 13:11 Resp 18 05/01/24 13:11 BP 129/75 05/01/24 13:11 Pulse Ox 100 05/01/24 13:11 O2 Del Method Room Air 05/01/24 13:11 Airway Mallampati Class: II TM Dist: >3cm Neck ROM: Full Denture: Upper Loose/Missing/Broken Teeth: Yes (Full denture top. Several teeth missing bottom. Denies broken or loose teeth) Heart: RRR Lungs: CTAB Assessment and Plan Assessment Anesthesia Assessment: Anesthesia Plan Discussed and Chart Reviewed Final Anesthetic Review Family History of Problems with Anesthesia: No History of Problems with Anesthesia: No NPO: Yes ASA Class: III Final Preanesthetic Review: No Changes in Pt Med Stat, Meds/Allgs Chart Reviewed, Consent Obtained/Reviewed and Anes Risks/Benef Reviewed Patient Risk: Intermediate Procedure Risk: Low Assessment/Block/Sedation in SS: Assess/Block/Sedation-SS Anesthetic Plan Anesthetic Plan: TIVA Disposition: Standard PACU
--- NOTE | 2024-05-01 15:02 | HO.OPN-COLON ---
Colonoscopy Operative Note Operative Note Date of Service: 05/01/24 Narrative: FLEXIBLE TRANSORAL UPPER GASTROINTESTINAL ENDOSCOPY WITH BAND LIGATION OF ESOPHAGEAL VARICES AND COLONOSCOPY TILL CECUM WITH BIOPSIES AND SNARE POLYPECTOMY Pre-op diagnosis: Colon cancer screening, cirrhosis - FU of varices Post-op diagnosis: Esophageal varices, portal hypertensive gastropathy, Colon Polyps, Diverticulosis, hemorrhoids Endoscopist:? Edgar Lyons MD Anesthesia:?MAC UPPER ENDOSCOPY Consent: Indications for the procedure and potential complications of bleeding, perforation, reaction to medications and missed diagnosis were discussed with the patient and informed consent was obtained. Instrument: Olympus GIF H 190 mid size upper endoscope Monitoring: Vital signs and clinical assessment, continuous EKG monitoring, Pulse oximetry, Carbon Dioxide monitoring and blood pressure monitoring were done throughout the procedure. Procedure: The patient was placed in the left lateral decubitis position and pre-procedure medications were administered and a bite block was placed. The endoscope was inserted into the mouth and advanced under direct vision to the third part of duodenum. A careful inspection was made as the upper endoscope was withdrawn including a retroflexed examination of the proximal stomach; Findings and interventions are described below. Findings: Larynx: Normal Esophagus: GE junction at 40 cms. Grade 2-3 four column varices fro m30 to 40 cms. Treated with band ligation x 5. One band slipped off and replaced with another band Two 1 cms tongues of possible Holbrook's - not amenable to biopsies due to presence of esophageal varices Stomach: Moderate portal hypertensive gastropathy without bleeding. Grade 2 flap valve on retroflexed examination of the cardia. Duodenum: Normal bulb and descending duodenum Intervention: Band ligation of esophageal varices as noted above COLONOSCOPY PROCEDURE NOTE Instrument: Olympus CF H 190 L variable stiffness adult colonoscope Monitoring: Vital signs and clinical assessment, intermittent blood pressure monitoring, continuous EKG monitoring, Pulse oximetry and Carbon Dioxide monitoring were done throughout the procedure. Please see anesthesia flowsheet. Colon withdrawl time was 22 minutes. Procedure: The patient was placed in the left lateral decubitis position and pre-procedure medications were administered. After a digital rectal examination of the ano-rectum, the video colonoscope was inserted into the rectum and advanced through the colon to the cecum. The colonoscope was slowly withdrawn in a retrograde panoramic fashion and the colon mucosa was carefully examined including a retroflexed view of the rectum. Findings and interventions are described below. Procedure Difficulty: without difficulty Findings: Terminal Ileum: Not evaluated Cecum: Normal Ascending Colon: Normal Transverse Colon: A 4-5 mm sessile polyp removed with a cold snare. Descending Colon: Moderate diverticulosis Sigmoid Colon: A 5-6 mm hyperplastic appearing polyp - biopsied. A few hyperplastic appearing polyps in the rectosigmoid. Severe diverticulosis with luminal narrowing Rectum: Normal Ano-rectum: Moderate internal hemorrhoids and rectal varices in the distal rectum Colon preparation: Good after copious irrigation and fair in the left colon with undigested vegetable matter which could not be suctioned (pt reported eating fish and fried around noon on 04/30/24). [place] Bowel Preparation Scale Right colon; 2 Transverse colon: 2 Left colon; 1 (0 = Unprepared colon segment with mucosa not seen due to solid stool that cannot be cleared. 1 = Portion of mucosa of the colon segment seen, but other areas of the colon segment not well seen due to staining, residual stool and/or opaque liquid. 2 = Minor amount of residual staining, small fragments of stool and/or opaque liquid, but mucosa of colon segment seen well. 3 = Entire mucosa of colon segment seen well with no residual staining, small fragments of stool or opaque liquid) Impression and Post Procedure Diagnosis: Endoscopy Findings: ESOPHAGUS: Grade 2-3 four column varices fro m30 to 40 cms. Treated with band ligation x 5. One band slipped off and replaced with another band STOMACH: Moderate portal hypertensive gastropathy Colonoscopy Findings: Two polyps were removed Moderate diverticulosis seen in the left colon Moderate hemorrhoids and rectal varices on retroflexed exam. Plan: Pt has a FU appointment on 05/15/24 with Lori Mcclellan NP Repeat EGD in 4-6 months FU of esophageal varices - message sent to surgical schedulers to schedule an appointment Repeat Colonoscopy in 5 years if polyps are adenomatous and 10 year if polyps are hyperplastic - patient placed on colonoscopy recall list Above findings were reviewed with the patient and relevant handouts were given and the discharge area. BIOPSIES SHOWED: A. Colon, transverse, polyp tubular adenoma, likely excised; negative for high-grade dysplasia and carcinoma. B. Colon, sigmoid, polyp: Colonic mucosa with no specific change; no adenomatous dysplasia seen
[2024-05-01 15:42] VITALS: BP 101/66; PULSE 80; RESP 15; TEMP 36.3; O2SAT 98
[2024-05-01 16:08] VITALS: BP 139/87; PULSE 70; RESP 18; TEMP 36.3; O2SAT 99
== END 2024-05-01 16:11 | disposition home or self-care (01) ==
PROVIDERS: PCP Internal Medicine; Visit Provider Internal Medicine Gastroenterology
PROC: (CPT 45385; principal; 2024-05-01 13:30)
DX: Z12.11 Encounter for screening for malignant neoplasm of colon (principal); D12.3 Benign neoplasm of transverse colon; K63.5 Polyp of colon; K70.31 Alcoholic cirrhosis of liver with ascites; K57.30 Diverticulosis of large intestine without perforation or abscess without bleeding; K64.8 Other hemorrhoids; I85.00 Esophageal varices without bleeding; K76.6 Portal hypertension; K76.9 Liver disease, unspecified; K31.89 Other diseases of stomach and duodenum; E55.9 Vitamin D deficiency, unspecified; E78.00 Pure hypercholesterolemia, unspecified; F10.11 Alcohol abuse, in remission; F17.210 Nicotine dependence, cigarettes, uncomplicated; Z88.8 Allergy status to other drugs, medicaments and biological substances
CPT/HCPCS: 45385; 45380; 43244; 88305; J1596; J2704

== ENCOUNTER → 2024-05-01 11:51 | Outpatient (BNV) | payer OTHER, SELFPAY | PROVIDERS: PCP Internal Medicine; Visit Provider Internal Medicine Gastroenterology | DX: Z12.11 Encounter for screening for malignant neoplasm of colon (principal); D12.3 Benign neoplasm of transverse colon; K63.5 Polyp of colon; K57.90 Diverticulosis of intestine, part unspecified, without perforation or abscess without bleeding; K64.8 Other hemorrhoids; I85.00 Esophageal varices without bleeding; K70.31 Alcoholic cirrhosis of liver with ascites; K31.89 Other diseases of stomach and duodenum | CPT/HCPCS: 43244; 45380; 45385 ==

== ENCOUNTER 2024-05-15 09:22 | Outpatient (REF) | payer OTHER, SELFPAY ==
--- NOTE | ~2024-05-15 | US_ITS ---
EXAMINATION: US ABDOMEN LIMITED WITH LIVER ELASTOGRAPHY CLINICAL INFORMATION: Hepatic cirrhosis. COMPARISON: Ultrasound abdomen 11/08/2021, MR abdomen 11/26/2021. TECHNIQUE: Real-time imaging of the abdominal viscera. Noninvasive ultrasound liver fibrosis assessment is performed using Tasha ElastPQ point quantification shear wave elastography (pSWE) with a 5 MHz transducer. Multiple elastography samples are obtained. FINDINGS: PANCREAS: The visualized pancreatic head and body are normal in appearance. The remainder of the pancreas is obscured from visualization by the overlying bowel gas. LIVER: The liver is enlarged with heterogeneously increased echogenicity consistent with hepatic steatosis. The border is nodular and there is hypertrophy of the caudate lobe. There is a 1.0 cm hypoechoic mass in the left lobe of the liver which was thought on MRI to be a hemangioma. At the time of the MRI, an additional 1.3 cm mass was seen just beneath the dome of the hemidiaphragm which is not visualized on this exam. No intrahepatic biliary duct dilatation. The right lobe measures 17.5 cm in length. The left lobe measures 11.9 cm in length. Shear wave elastography provides a median stiffness of 2.84 m/s (reference: normal median stiffness is 0.81 - 1.22 m/s). The IQR/median stiffness to assess sampling precision is 0.07 (reference: optimal IQR/median stiffness is under 0.3). GALLBLADDER: Gallstones are present and the gallbladder wall is thickened at 6 mm. Ma's sign is negative. No pericholecystic fluid collections. COMMON BILE DUCT: Normal in caliber measuring 0.3 cm in diameter. RIGHT KIDNEY: Normal. No hydronephrosis. No renal calculi or focal parenchymal lesions. The kidney measures 9.9 cm in maximum dimension. FREE FLUID: Tiny amount. US/US abdomen chau w elastography IMPRESSION: 1. Enlarged hyperechoic nodular liver consistent with hepatic steatosis and cirrhosis. 2. Elastography: Liver elastography measurements are consistent with a high risk for clinically significant liver fibrosis (METAVIR Stage F3-F4). Electronically signed by: Jeff Can MD 06/01/2024 09:57 PM EDT
== END 2024-05-15 09:23 | disposition home or self-care (01) ==
LOC: HO.US 09:22
PROVIDERS: PCP Internal Medicine; Visit Provider Nurse Practitioner Family
DX: K70.31 Alcoholic cirrhosis of liver with ascites (principal)
CPT/HCPCS: 76705; 76981

== ENCOUNTER 2024-05-15 11:02 | Outpatient (AMB) | payer OTHER, SELFPAY ==
--- NOTE | 2024-05-15 11:18 | A.OFFVIS_ITS ---
Vital Signs 05/15/24 11:19 Height 5 ft 5.5 in Weight 132 lb 11.492 oz BMI 21.7 BP 126/72 Blood Pressure Location Lt brachial Position Sitting Pulse 48 L Pulse Source Pulse Oximeter Pulse Oximetry (%) 100 Oxygen Delivery Method Room Air Intake Visit Reasons: s/p egd/colon Intake Note: Rg presents in office today for a scheduled post op FUV. CC; Pt denies any new complications or new sx at this time. Pt had reported some mild epigastric / lower chest. Pt states that the pain resolved a few days later and has not had any new presentation since then. Mud Analysis Operator Required: No Accompanied by: Spouse Allergies atorvastatin [From LIPITOR] Allergy (Unknown, Verified 05/15/24 11:19) UNKNOWN ANY STATIN MEDICATIONS Allergy (Unknown, Uncoded 01/14/24 13:59) hives Lipitor Allergy (Unknown, Uncoded 01/14/24 13:59) Hives HPI HPI s/p egd/colon: Details: LAST VISIT: Liver cirrhosis Colon cancer screening Lesion of left lobe of liver History of alcohol abuse History of upper gastrointestinal bleeding Hemorrhoid Plan Will check for hepatitis A, B, C, phosphatidylethanol to verify patient's abstinence from alcohol. Will order ultrasound with liver elastography. Patient will be sent for upper endoscopy as he have a history of liver cirrhosis. Patient denies any cardiac or respiratory symptoms. He is not on any anticoagulation medication. Colace daily to help with bowel movement. May use Proctosol on as needed basis. Sitz baths with Epsom salt as needed. I will see patient after the procedure, sooner on as needed basis. He is agreeable to this plan and verbalizes understanding of instructions. He was given the opportunity to ask questions and all questions answered. ? Thank you for allowing me to participate in his care Orders Orders Hepatitis A,B,C Profile 04/18/24 R79.89 Phosphatidylethanol, Blood 04/18/24 R74.01 US abdomen chau w elastography 04/18/24 K70.31 Medications New bisacodyl (Dulcolax (bisacodyl)) take 4 tabs at noon the day before your colonoscopy 20 mg (4 x 5 mg) PO ONCE 4 tabs 0RF 1 day Z12.11 polyethylene glycol 3350 (Miralax) As directed by gastroenterology department at [facility] 238 grams PO ONCE 238 grams 0RF Z12.11 docusate sodium 100 mg PO BEDTIME 90 caps 3RF K59.00 hydrocortisone 2.5% (Proctosol HC) 1 appl IN BID-QID PRN 30 grams 2RF hemorrhoids K64.9 UPPER ENDOSCOPY AND COLONOSCOPY Findings: Larynx: Normal Esophagus: GE junction at 40 cms. Grade 2-3 four column varices fro m30 to 40 cms. Treated with band ligation x 5. One band slipped off and replaced with another band Two 1 cms tongues of possible Holbrook's - not amenable to biopsies due to presence of esophageal varices Stomach: Moderate portal hypertensive gastropathy without bleeding. Grade 2 flap valve on retroflexed examination of the cardia. Duodenum: Normal bulb and descending duodenum Intervention: Band ligation of esophageal varices as noted above COLONOSCOPY PROCEDURE NOTE Instrument: Olympus CF H 190 L variable stiffness adult colonoscope Monitoring: Vital signs and clinical assessment, intermittent blood pressure monitoring, continuous EKG monitoring, Pulse oximetry and Carbon Dioxide monitoring were done throughout the procedure. Please see anesthesia flowsheet. Colon withdrawl time was 22 minutes. Procedure: The patient was placed in the left lateral decubitis position and pre-procedure medications were administered. After a digital rectal examination of the ano-rectum, the video colonoscope was inserted into the rectum and advanced through the colon to the cecum. The colonoscope was slowly withdrawn in a retrograde panoramic fashion and the colon mucosa was carefully examined including a retroflexed view of the rectum. Findings and interventions are described below. Procedure Difficulty: without difficulty Findings: Terminal Ileum: Not evaluated Cecum: Normal Ascending Colon: Normal Transverse Colon: A 4-5 mm sessile polyp removed with a cold snare. Descending Colon: Moderate diverticulosis Sigmoid Colon: A 5-6 mm hyperplastic appearing polyp - biopsied. A few hyperplastic appearing polyps in the rectosigmoid. Severe diverticulosis with luminal narrowing Rectum: Normal Ano-rectum: Moderate internal hemorrhoids and rectal varices in the distal rectum Colon preparation: Good after copious irrigation and fair in the left colon with undigested vegetable matter which could not be suctioned (pt reported eating fish and fried around noon on 04/30/24). [place] Bowel Preparation Scale Right colon; 2 Transverse colon: 2 Left colon; 1 (0 = Unprepared colon segment with mucosa not seen due to solid stool that canno t be cleared. 1 = Portion of mucosa of the colon segment seen, but other areas of the colon segment not well seen due to staining, residual stool and/or opaque liquid. 2 = Minor amount of residual staining, small fragments of stool and/or opaque liquid, but mucosa of colon segment seen well. 3 = Entire mucosa of colon segment seen well with no residual staining, small fragments of stool or opaque liquid) Impression and Post Procedure Diagnosis: Endoscopy Findings: ESOPHAGUS: Grade 2-3 four column varices fro m30 to 40 cms. Treated with band ligation x 5. One band slipped off and replaced with another band STOMACH: Moderate portal hypertensive gastropathy Colonoscopy Findings: Two polyps were removed Moderate diverticulosis seen in the left colon Moderate hemorrhoids and rectal varices on retroflexed exam. Plan: Repeat EGD in 4-6 months FU of esophageal varices - message sent to surgical schedulers to schedule an appointment Repeat Colonoscopy in 5 years if polyps are adenomatous and 10 year if polyps are hyperplastic - patient placed on colonoscopy recall list Above findings were reviewed with the patient and relevant handouts were given and the discharge area. BIOPSIES SHOWED: A. Colon, transverse, polyp tubular adenoma, likely excised; negative for high- grade dysplasia and carcinoma. B. Colon, sigmoid, polyp: Colonic mucosa with no specific change; no adenomatous dysplasia seen TODAY'S VISIT Patient is here today for follow-up and to discuss upper endoscopy and colonoscopy results. Patient is accompanied by his . Patient denies any ill effects from the prep, anesthesia or procedure itself. Patient reports that he has been doing well since the procedure. Continues to avoid alcohol. Diagnosed with varices and moderate portal hypertensive gastropathy. Patient will need endoscopy in 4 to 6 months. Patient denies melena, hematochezia, unintentional weight loss or ribbon like stools. Patient denies any dyspepsia, dysphagia or odynophagia. Patient is not following any particular diet. Will discuss diet today [facility] Medical History (Updated 05/15/24 @ 11:51 by Smitha Mcclellan [facility]) Portal hypertensive gastropathy Esophageal varices determined by endoscopy Tubular adenoma of colon Vitamin D deficiency Smoker Portal hypertension Pure hypercholesterolemia Liver cirrhosis Surgical History History of colonoscopy History of penile implant Social History Housing: House Alcohol intake: former Patient Tobacco Use Status: Current everyday Tobacco user Cigarette Packs Per Day: 1 Cigarettes Per Day: 20 Second Hand Smoke Exposure: Yes service: No Current occupational status: employed Cognitive needs: No Hearing needs: No Vision needs: Yes Physical Exam Vital Signs: Last Vital Signs Pulse 48 L 05/15/24 11:19 BP 126/72 05/15/24 11:19 Pulse Ox 100 05/15/24 11:19 Oxygen Delivery Method Room Air 05/15/24 11:19 BMI result Body Mass Index 21.7 Assessment & Plan Assessment & Plan (1) Vitamin D deficiency: Code(s): E55.9 - Vitamin D deficiency, unspecified Category: Medical (2) Lesion of left lobe of liver: Code(s): K76.9 - Liver disease, unspecified Category: Medical (3) History of alcohol abuse: Code(s): F10.11 - Alcohol abuse, in remission Category: Medical (4) Liver cirrhosis: Code(s): K74.60 - Unspecified cirrhosis of liver Category: Medical Qualifiers: Hepatic cirrhosis type: alcoholic cirrhosis Ascites presence: with ascites Qualified Code(s): K70.31 - Alcoholic cirrhosis of liver with ascites (5) Tubular adenoma of colon: Code(s): D12.6 - Benign neoplasm of colon, unspecified Category: Medical (6) Esophageal varices determined by endoscopy: Code(s): I85.00 - Esophageal varices without bleeding Category: Medical (7) Portal hypertensive gastropathy: Code(s): K76.6 - Portal hypertension; K31.89 - Other diseases of stomach and duodenum Category: Medical Plan Discussed with patient avoiding dietary triggers and late night snacking. Patient will continue to avoid food that is high in fat and salt. Diagnosed with esophageal varices and portal hypertensive gastropathy. Patient would benefit from low-dose statin, however reports allergy, multiple different statins tried in the past and patient had hives. Statins increase nitric oxide production and bio availability in endothelial cells by activating endothelial nitric oxide synthase. NO is a basal dilator that helps protect against inflammation, hypertension and arterial issues. Unable to start patient on beta blockers patient's pulse very low. Patient's pulse rechecked in the office today twice 50-52 If patient's pulse above 60 he can be started on carvedilol or nadolol. Patient is to schedule upper endoscopy to check for varices. Ultrasound with elastography done today will wait for results to discuss them with patient. He will follow-up with me after the procedure, sooner on as needed basis. He is agreeable to this plan and verbalizes understanding of instructions. He was given the opportunity to ask questions and all questions answered. Thank you for allowing me to participate in his care Coding Level of Care Code Est Pt Level 4 (33715) Diagnoses Vitamin D deficiency E55.9 Lesion of left lobe of liver K76.9 History of alcohol abuse F10.11 Alcoholic cirrhosis of liver with ascites K70.31 Hepatic cirrhosis type: alcoholic cirrhosis Ascites presence: with ascites Tubular adenoma of colon D12.6 Esophageal varices determined by endoscopy I85.00 Portal hypertensive gastropathy K76.6; K31.89 Time Spent (min) 35 Comment 20 minutes spent with patient and additional 15 minutes spent reviewing his records
[2024-05-15 11:19] VITALS: BP 126/72; PULSE 48; O2SAT 100; BMI 21.7
== END 2024-05-15 13:15 | disposition home or self-care (01) ==
PROVIDERS: PCP Internal Medicine; Visit Provider Nurse Practitioner Family
DX: E55.9 Vitamin D deficiency, unspecified (principal); K76.9 Liver disease, unspecified; F10.11 Alcohol abuse, in remission; K70.31 Alcoholic cirrhosis of liver with ascites; D12.6 Benign neoplasm of colon, unspecified; I85.00 Esophageal varices without bleeding; K76.6 Portal hypertension; K31.89 Other diseases of stomach and duodenum
CPT/HCPCS: 99214

== ENCOUNTER 2024-08-16 16:08 | Outpatient (AMB) | payer OTHER, SELFPAY ==
[2024-08-16 16:12] VITALS: BP 128/76; PULSE 58; O2SAT 99; BMI 22.2
--- NOTE | 2024-08-16 16:12 | A.OFFPC_ITS ---
Vital Signs 08/16/24 16:12 Height 5 ft 5.5 in Weight 135 lb 6 oz BMI 22.2 BP 128/76 Blood Pressure Location Lt brachial Position Sitting Pulse 58 Pulse Source Pulse Oximeter Pulse Oximetry (%) 99 Oxygen Delivery Method Room Air Intake Visit Reasons: 4 month f/u Forensic Psychiatrist Required: No Accompanied by: Self / Same As Patient Allergies atorvastatin [From LIPITOR] Allergy (Unknown, Verified 08/20/24 17:51) UNKNOWN ANY STATIN MEDICATIONS Allergy (Unknown, Uncoded 08/20/24 17:51) hives Lipitor Allergy (Unknown, Uncoded 08/20/24 17:51) Hives Medication List - Last Reconciled 08/20/24 by Colt Cadena MD cholecalciferol (vitamin D3) 50 mcg PO DAILY 90 days docusate sodium 100 mg PO BEDTIME hydrocortisone 2.5% (Proctosol HC) 1 appl [place] BID-QID PRN sildenafil 50 mg PO DAILY PRN Tobacco use date assessed: 08/16/24 Fall risk assessment: No Falls in past year Last assessed Fall Risk: 08/16/24 Dental Screening Dental Screen Date: 08/16/24 Did you have a dental visit in the last 12 months?: No Did you have a dental problem in the last 6 months where you did not have access to dental care?: No Was dental information given to patient?: No HPI 4 month f/u HPI Details Patient comes in today for his follow-up visit States that he feels okay He denies any headaches or dizziness Denies any chest pains, no increased shortness of breath No nausea/vomiting, no abdominal pain No change in bowel habits noted He had his follow-up labs done back in April 2024 but he ended up having his follow-up appointment back then rescheduled to today and he has not had any other labs done since [facility] Medical History Portal hypertensive gastropathy Esophageal varices determined by endoscopy Tubular adenoma of colon Vitamin D deficiency Smoker Portal hypertension Pure hypercholesterolemia Liver cirrhosis Surgical History History of colonoscopy History of penile implant Social History Housing: House Alcohol intake: former Patient Tobacco Use Status: Current everyday Tobacco user Cigarette Packs Per Day: 1 Cigarettes Per Day: 20 Second Hand Smoke Exposure: Yes service: No Current occupational status: employed Cognitive needs: No Hearing needs: No Vision needs: Yes Questionnaire PHQ-9 Over the last 2 weeks, how often have you been bothered by any of the following problems? 1. Little interest or pleasure in doing things: not at all 2. Feeling down, depressed, or hopeless: not at all 3. Trouble falling or staying asleep, or sleeping too much: not at all 4. Feeling tired or having little energy: not at all 5. Poor appetite or overeating: not at all 6. Feeling bad about yourself - or that you are a failure or have let yourself or your family down: not at all 7. Trouble concentrating on things, such as reading the newspaper or watching television: not at all 8. Moving or speaking so slowly that other people could have noticed. Or the opposite - being so fidgety or restless that you have been moving around a lot more than usual: not at all 9. Thoughts that you would be better off or of hurting yourself in some way: not at all Total score: 0 Depression Screening Interpretation: Negative Depression Screening Done: Yes 91994 - PHQ-9 Billing: Yes Source: Developed by Drs. Chang Cano, Mily Juares, Thien Montgomery and colleagues, with an educational pam from [employer]. Thrive Questionnaire Date Thrive assessed: 08/16/24 I am a: Patient What is your living situation today?: I have a steady place to live Within the past 12 months, did the food you bought not last and you didn't have the money to get more?: Never true Within the past 12 months, did you worry whether your food would run out before you got money to buy more?: Never true Do you have trouble paying for medicines?: No Do you have trouble getting transportation to medical appointments?: No Do you have trouble paying your heating and electricity bill?: No Do you have trouble taking care of your child, family member or friend?: No Do you have trouble with day-to-day activities such as bathing, preparing meals, shopping, managing finances, etc.?: No Are you currently unemployed and looking for a job?: No Are you interested in more education?: No Please select the resources that you would like help with: None Currently or been in a relationship where the following occur: No concerns reported THRIVE Score: 0 AUDIT C Alcohol Use Questionnaire (AUDIT-C) 1. How often do you have a drink containing alcohol?: Never 2. How many drinks containing alcohol do you have on a typical day when you are drinking?: 1 or 2 (0) 3. How often do you have six or more drinks on one occasion?: Never Total Score: 0 Score Reviewed/Action Taken: Yes SUSANNA-7 AMB Questionnaire SUSANNA-7 Date SUSANNA - 7 assessed: 08/16/24 Feeling nervous, anxious, or on edge: 0 = Not at all Not being able to stop or control worryin = Not at all Worrying too much about different things: 0 = Not at all Trouble relaxin = Not at all Being so restless that it is hard to sit still: 0 = Not at all Becoming easily annoyed or irritable: 0 = Not at all Feeling afraid as if something awful might happen: 0 = Not at all Total SUSANNA-7 score (0-4 normal; 5-9 mild; 10-14 moderate; 15-21 severe): 0 Source: Developed by Drs. Chang Cano, Mily Juares, Thien Montgomery and colleagues, with an educational pam from [employer]. SUSANNA-7 Assessment Billing SUSANNA-7 Assessment Tool: SUSANNA-7 Assessment 35735 Review of Systems Const Denies chills, Denies fatigue, Denies fever(s) and Denies headache(s) ENT Denies dysphagia, Denies dizziness, Denies otalgia, Denies headache(s), Denies neck pain, Denies odynophagia and Denies sore throat Card Denies chest pain, Denies irregular heart rhythm, Denies palpitations and Denies dyspnea Resp Denies chest congestion, Denies cough and Denies dyspnea GI Denies abdominal pain, Denies constipation, Denies dysphagia, Denies heartburn, Denies diarrhea, Denies nausea, Denies odynophagia and Denies vomiting Denies difficulty urinating, Reports erectile dysfunction, Denies dysuria and Denies urinary frequency Musc Denies back pain, Reports arthralgias (involving multiple joints, especially over the hands/fingers), Denies neck pain and Reports stiffness Skin/Breast Denies rash Neuro Denies dizziness, Denies headache(s) and Denies paresthesias Endo Denies fatigue and Denies palpitations Physical exam (Primary Care) Vital Signs: Last Vital Signs Pulse 58 08/16/24 16:12 BP 128/76 08/16/24 16:12 Pulse Ox 99 08/16/24 16:12 Oxygen Delivery Method Room Air 08/16/24 16:12 BMI result Body Mass Index 22.2 Tobacco/Smoking Status: Tobacco use Status Tobacco use date assessed 08/16/24 08/16/24 16:15 Patient Tobacco Use Status Current everyday Tobacco 08/16/24 16:15 PHQ-9: PHQ-9 Score PHQ-9: Total score 0 08/16/24 16:46 Depression Screening Interpretation: Negative Thrive Assessment: Date of Thrive Assessment Date Thrive assessed 08/16/24 08/16/24 16:15 Currently or been in a relationship where the following occur: No concerns repo rted Const General: no acute distress and alert HENMT Ears: TM's normal bilaterally and EAC's normal Throat: Yes posterior oropharynx normal and Yes tonsils normal (no TP congestion) Neck Neck: Yes no lymphadenopathy and Yes supple Thyroid: Thyroid normal Resp Auscultation: clear to auscultation bilaterally, no rales and no wheezes Cardio Rate: regular rate Rhythm: regular rhythm Heart sounds: no murmurs GI Palpation (GI): Soft to palpation and nontender Auscultation: normal bowel sounds General: Yes no CVA tenderness Back/Spine/Pelvis Back: no CVA tenderness Thoracic/Lumbar Spine: No lumbar spinal tenderness Skin Rashes: no rashes Extrem General: Yes no clubbing, cyanosis or edema Results Reviewed Results Reviewed: Laboratory Tests 04/28/24 04/28/24 12:25 12:55 WBC 5.5 Hgb 14.3 Hct 43.9 Plt Count 143 L Sodium 141 Potassium 4.6 Creatinine 0.92 Estimated GFR > 60 Fasting Glucose 102 H Calcium 9.8 D AST 26 ALT 27 Triglycerides 79 Cholesterol 191 LDL Cholesterol, Calc 126 H HDL Cholesterol 50 Prostate Specific Ag 4.81 H Urine pH 6.0 Ur Specific [place] 1.020 Urine Protein Negative Urine Glucose (UA) Negative Urine Blood Negative Urine Nitrite Negative Ur Leukocyte Esterase Negative Coding Level of Care Code Est Pt Level 4 (62378) Diagnoses Alcoholic cirrhosis of liver with ascites K70.31 Hepatic cirrhosis type: alcoholic cirrhosis Ascites presence: with ascites Portal hypertension K76.6 History of upper gastrointestinal bleeding Z87.19 History of alcohol abuse F10.11 Pure hypercholesterolemia E78.00 Vitamin D deficiency E55.9 Arthralgia, unspecified joint M25.50 Joint pain location: unspecified Elevated PSA R97.20 Erectile dysfunction, unspecified erectile dysfunction type N52.9 Erectile dysfunction type: unspecified Smoker F17.200 Additional Codes SUSANNA-7 Assessment Billing - SUSANNA-7 Assessment Tool: SUSANNA-7 Assessment 25454 ([id number]) PHQ-9 - 69947 - PHQ-9 Billing: Yes ([id number]) Assessment & Plan Assessment & Plan (1) Liver cirrhosis: Code(s): K74.60 - Unspecified cirrhosis of liver Category: Medical Qualifiers: Hepatic cirrhosis type: alcoholic cirrhosis Ascites presence: with ascites Qualified Code(s): K70.31 - Alcoholic cirrhosis of liver with ascites Plan: Repeat abdominal US done in 2021 revealed a hypoechoic lesion in the liver and MRI was recommended for further evaluation MRI done in November 2021 revealed that the hepatic morphology was consistent with cirrhosis. There is mild splenic enlargement noted. A 1.3 cm lesion is observed at the hepatic dome demonstrating arterial phase enhancement. This is classified as a LR-3 lesion with an intermediate probability for HCC. Short interval follow-up in 3 months is advised. There is a 1.2 cm lesion in the left hepatic lobe with progressive peripheral nodular enhancement. This may represent a hemangioma. Cholelithiasis is also noted He was previously referred to GI and he is now seeing Dr. Lyons for GI follow up of his hepatic and GI issues (2) Portal hypertension: Code(s): K76.6 - Portal hypertension Category: Medical Plan: He was on Propranolol 10 mg BID in the past but he has not taken this Rx in a while now His LFTs done last April 2024 came out okay/normal but EGD done in April 2024 revealed (+) esophageal varices that required band ligation and he will need to have repeat EGD done in 4 to 6 months for follow up He also had findings of moderate portal hypertensive gastropathy in his stomach on EGD (3) History of upper gastrointestinal bleeding: Code(s): Z87.19 - Personal history of other diseases of the digestive system Category: Medical Plan: Stable with no recurrence of symptoms He was on Omeprazole 40 mg BID in the past but patient has again not taken any Rx in a while He did have esophageal varices noted on his upper endoscopy in April 2024 that required band ligation and he will need repeat EGD in 4-6 months for follow-up Follow-up with GI as scheduled (4) History of alcohol abuse: Code(s): F10.11 - Alcohol abuse, in remission Category: Medical Plan: Reinforced abstinence Patient reports quitting drinking years ago and states that he has not had any alcohol for the past few years now He was on Folic Acid 1 mg and Thiamine 100 mg daily in the past but patient has again not been taking any of his previous Rx in the past couple of years (5) Pure hypercholesterolemia: Code(s): E78.00 - Pure hypercholesterolemia, unspecified Category: Medical Plan: Results of his labs done back in April 2024 reviewed and discussed with patient Reinforced low cholesterol diet Will recheck his fasting lipids and labs in 4 months for follow-up (6) Vitamin D deficiency: Code(s): E55.9 - Vitamin D deficiency, unspecified Category: Medical Plan: He is advised that his Vitamin D level is still low on his recent labs in April 2024 Continue Vitamin D3 2000 units QD (7) Arthralgia: Code(s): M25.50 - Pain in unspecified joint Category: Medical Qualifiers: Joint pain location: unspecified Qualified Code(s): M25.50 - Pain in unspecified joint Plan: Arthralgia work ups done a few years ago came back positive for OLIVIA and slightly elevated ESR; CRP and RA were negative Rheumatoid factor was high on his labs done in September 2021 when his tests were repeated back then; OLIVIA was negative He currently still does NOT have any signs or symptoms of active inflammatory disease and his (+) rheumatoid factor may be related to his liver disease (8) Elevated PSA: Comment: PSA was at 4.81 in April 2024 Code(s): R97.20 - Elevated prostate specific antigen [PSA] Category: Medical Plan: He is advised that his PSA was high on his labs done back in April 2024 Will refer him to urology for further evaluation and management (9) Erectile dysfunction: Code(s): N52.9 - Male erectile dysfunction, unspecified Category: Medical Qualifiers: Erectile dysfunction type: unspecified Qualified Code(s): N52.9 - Male erectile dysfunction, unspecified Plan: Per request, we will start him on Sildenafil 50 mg PRN (10) Smoker: Code(s): F17.200 - Nicotine dependence, unspecified, uncomplicated Category: Social Hx Plan: Patient is counseled again on smoking cessation Plan Follow up in 4 months Orders: Orders Lipid Panel 4 Months E78.00 - Pure hypercholesterolemia, unspecified Complete Blood Count Auto Diff 4 Months D64.9 - Anemia, unspecified UA CC w/rflx Micro + Cult 4 Months R30.0 - Dysuria Comprehensive [place]. Panel Fast 4 Months E78.00 - Pure hypercholesterolemia, unspecified TSH reflex Free T4 4 Months E78.00 - Pure hypercholesterolemia, unspecified Vitamin D 25-OH Total 4 Months E55.9 - Vitamin D deficiency, unspecified Referrals Urology Referral R97.20 - Elevated prostate specific antigen [PSA] Medications: New sildenafil administer 30 minutes to 4 hours before activity 50 mg PO DAILY PRN 10 tabs 0RF sexual activity
== END 2024-08-16 16:56 | disposition home or self-care (01) ==
PROVIDERS: PCP Internal Medicine; Visit Provider Internal Medicine
DX: K70.31 Alcoholic cirrhosis of liver with ascites (principal); K76.6 Portal hypertension; Z87.19 Personal history of other diseases of the digestive system; F10.11 Alcohol abuse, in remission; E78.00 Pure hypercholesterolemia, unspecified; E55.9 Vitamin D deficiency, unspecified; M25.50 Pain in unspecified joint; R97.20 Elevated prostate specific antigen [PSA]; N52.9 Male erectile dysfunction, unspecified; F17.200 Nicotine dependence, unspecified, uncomplicated

== ENCOUNTER → 2024-08-16 16:08 | Outpatient (BNVA) | payer OTHER, SELFPAY | PROVIDERS: PCP Internal Medicine; Visit Provider Internal Medicine | DX: K70.31 Alcoholic cirrhosis of liver with ascites (principal); K76.6 Portal hypertension; F10.11 Alcohol abuse, in remission; E78.00 Pure hypercholesterolemia, unspecified; E55.9 Vitamin D deficiency, unspecified; M25.50 Pain in unspecified joint; R97.20 Elevated prostate specific antigen [PSA]; N52.9 Male erectile dysfunction, unspecified; F17.210 Nicotine dependence, cigarettes, uncomplicated; Z79.899 Other long term (current) drug therapy; Z87.19 Personal history of other diseases of the digestive system | CPT/HCPCS: 96127 ==

== ENCOUNTER 2024-10-10 14:43 | Outpatient (AMB) | payer OTHER, SELFPAY ==
--- NOTE | 2024-10-10 14:57 | MHC.OFFVIS ---
Intake Visit Reasons: elevated PSA Intake Note: New patient is present for Elevated PSA/Erectile Dysfunction Urology Med: Sildenafil Antibiotic Allergy: None Blood Thinner: None Director Of Healthcare Systems Required: No Accompanied by: Self / Same As Patient Allergies atorvastatin [From LIPITOR] Allergy (Unknown, Verified 10/10/24 20:53) UNKNOWN ANY STATIN MEDICATIONS Allergy (Unknown, Uncoded 10/10/24 20:53) hives Lipitor Allergy (Unknown, Uncoded 10/10/24 20:53) Hives Medication List - Last Reconciled 10/10/24 by DAYRON Styles cholecalciferol (vitamin D3) 50 mcg PO DAILY 90 days docusate sodium 100 mg PO BEDTIME hydrocortisone 2.5% (Proctosol HC) 1 appl [place] BID-QID PRN sildenafil 50 mg PO DAILY PRN HPI Comments Details: Rg Villegas is a pleasant 63-year-old male patient of Dr. Cadena. He has a past medical history of portal hypertension, esophageal varices determined by endoscopy, vitamin-D deficiency, nicotine dependence, hypercholesteremia, and liver cirrhosis. He presents to the office today as a new patient for an elevated PSA as well as erectile dysfunction. In discussion with the patient today reports having followed up with his PCP at which time he had annual blood work drawn and PSA was noted to be elevated and recommendations were made for urology referral for further assessment evaluation. When asked he denies any known family history of prostate cancer. ANEESH offered however deferred. He denies any bothersome lower urinary tract symptoms. He reports be happy with current voiding parameters. In office urinalysis results reviewed with the patient today. We discussed at length potential causes of elevated PSA as well as erectile dysfunction and further treatment options of these urological conditions. PSAs are as follows: 10/18 1.0, 05/20 4.8 [facility] Medical History Portal hypertensive gastropathy Esophageal varices determined by endoscopy Tubular adenoma of colon Vitamin D deficiency Smoker Portal hypertension Pure hypercholesterolemia Liver cirrhosis Surgical History History of colonoscopy History of penile implant Social History Housing: House Alcohol intake: former Patient Tobacco Use Status: Current everyday Tobacco user Cigarette Packs Per Day: 1 Cigarettes Per Day: 20 Second Hand Smoke Exposure: Yes service: No Current occupational status: employed Cognitive needs: No Hearing needs: No Vision needs: Yes Review of Systems Const All systems reviewed & are unremarkable except as noted in HPI and below Physical Exam Const General: cooperative, healthy appearing, comfortable, no acute distress, well developed, alert and awake Orientation/consciousness: patient oriented x3 Limitations: no limitations HEENT Head: Yes normal to inspection, Yes normocephalic and Yes atraumatic Ears: hearing grossly normal bilaterally Eyes General: appearance normal, both eyes and all related structures Neck Neck: Yes normal visual inspection and Yes trachea midline Chest Chest palpation & inspection: normal inspection of the chest Resp Effort & Inspection: normal respiratory effort and able to speak in complete sentences Cardio Rate: regular rate GI Inspection: Yes normal to inspection General: Yes no CVA tenderness Back/Spine/Pelvis Back: no CVA tenderness Skin General skin exam: no rashes or lesions noted Neuro General: patient oriented x3 Extrem General: Yes normal to inspection Psych Appearance: grossly normal and well kempt Mental Status: mental status grossly normal Speech and movement: Normal speech and movement present and Clear speech present Affect: normal affect Attitude: cooperative Thought process: Normal thought process present Thought content: Normal thought content present Insight: Fair insight present (Psych) Judgement: Fair judgement present (Psych) Results AMB Urinalysis, Automated UA Leukoctes 0 Rosana/uL Last Edit by NIKKI Montez on 10/10/24 15:16 UA Nitrite Negative Last Edit by NIKKI Montez on 10/10/24 15:16 UA Urobilinogen 0.2 mg/dL Last Edit by NIKKI Montez on 10/10/24 15:16 UA Protein 0 mg/dL Last Edit by NIKKI Montez on 10/10/24 15:16 UA pH 7.5 Last Edit by NIKKI Montez on 10/10/24 15:16 UA Blood 0 Ean/uL Last Edit by NIKKI Montez on 10/10/24 15:16 UA Specific [place] 1.015 Last Edit by NIKKI Montez on 10/10/24 15:16 UA Ketone Negative Last Edit by NIKKI Montez on 10/10/24 15:16 UA Bilirubin 0 mg/dL Last Edit by NIKKI Montez on 10/10/24 15:16 UA Glucose 0 mg/dL Last Edit by NIKKI Montez on 10/10/24 15:16 Results Reviewed Results Reviewed: Laboratory Last Values Urine pH (Auto) 7.5 10/10/24 15:09 Specific [place] (Auto) 1.015 10/10/24 15:09 Urine Protein (Auto) 0 mg/dL 10/10/24 15:09 Glucose (UA)(Auto) 0 mg/dL 10/10/24 15:09 Urine Ketones (Auto) Negative 10/10/24 15:09 Urine Blood (Auto) 0 Ean/uL 10/10/24 15:09 Urine Nitrite (Auto) Negative 10/10/24 15:09 Urine Bilirubin (Auto) 0 mg/dL 10/10/24 15:09 Urine Urobilinogen (Auto) 0.2 mg/dL 10/10/24 15:09 Leukocyte Esterase (Auto) 0 Rosana/uL 10/10/24 15:09 Assessment & Plan Assessment & Plan (1) Elevated PSA: Comment: PSA was at 4.81 in April 2024 Code(s): R97.20 - Elevated prostate specific antigen [PSA] Category: Medical Plan In office urinalysis results reviewed with the patient today; as noted above. We discussed at length potential causes of elevated PSA as well as erectile dysfunction and treatment options of these urological concerns. Start 5 mg of Cialis daily P.r.n. prescription provided. Will obtain redraw of PSA with no sex the night before, no caffeine morning of, no heavy lifting 1-2 days prior. Will obtain retroperitoneal ultrasound for further assessment evaluation. ANEESH offered however deferred. We discussed at length lifestyle modifications to assist with erectile dysfunction. We discussed importance of limiting/quitting nicotine for overall health and well-being Follow-up in 1-3 months with imaging, labs, and PVR to be completed prior; or sooner with any issues, concerns, and or questions. Orders: Orders US retroperitoneal comp Today R97.20 - Elevated prostate specific antigen [PSA] PSA,Total (Free>4and<10) Today R97.20 - Elevated prostate specific antigen [PSA] AMB Urinalysis Automated Today Z13.9 - Encounter for screening, unspecified Medications: New tadalafil (Cialis) [facility] [address] [id number] 5 mg PO DAILY 90 days 90 tabs 1RF tadalafil (Cialis) [facility] [address] [id number] 20 mg PO .PRN 90 days 30 tabs 0RF Discontinued sildenafil administer 30 minutes to 4 hours before activity Discontinued Reason: Doctor's Order 50 mg PO DAILY PRN 10 tabs 0RF sexual activity Patient Instructions: The patient had an opportunity to ask questions regarding the treatment plan. All questions were answered. Physical exam, labs, and imaging were discussed and reviewed in detail. As well as risks, benefits, and discussion of treatment choices. No major barriers to understanding were identified. The patient expressed understanding and agreement with the above treatment plan. The patient was made aware they should contact our office by phone for worsening of their current condition, the appearance of new symptoms, or with any questions or concerns. Compliance is encouraged with any medications and follow up testing that is ordered. It is a privilege to be allowed the opportunity to participate in? your urological care.? Again, if you have any questions or concerns If you have any questions or concerns please do not hesitate to contact me. The office is [phone]. This note is constructed using voice recognition software. While every effort has been made to ensure accuracy urologist physician errors may have been included. Yours sincerely, DAYRON Styles Coding Level of Care Code New Pt Level 4 (69844) Diagnoses Elevated PSA R97.20
== END 2024-10-10 15:38 | disposition home or self-care (01) ==
PROVIDERS: PCP Internal Medicine; Visit Provider Nurse Practitioner Family
DX: Z13.9 Encounter for screening, unspecified (principal); R97.20 Elevated prostate specific antigen [PSA]
CPT/HCPCS: 99204

== ENCOUNTER → 2024-10-10 14:43 | Outpatient (BNVA) | payer OTHER, SELFPAY | PROVIDERS: PCP Internal Medicine; Visit Provider Nurse Practitioner Family | DX: R97.20 Elevated prostate specific antigen [PSA] (principal) | CPT/HCPCS: 81003 ==